=== PATIENT | female | born 2000 | race American Indian/Alaskan Native ===

== ENCOUNTER 2018-08-14 21:00 | Emergency (ER) | payer MEDICAID ==
--- NOTE | 2018-08-14 21:34 | Emergency Department Report ---
Blank Doc - Documentation Documentation: This is a 18-year-old female that presents with UTI concerns. Patient stated she was seen with her OBGYN was diagnosed with UTI but never received medications last week. Stated has some bilateral flank pain. Denies any urinary symptoms. Stated is about 12 weeks . This initial assessment diagnostic orders/clinical plan/treatment(s) is/are subject to change based on patient's health status, clinical progression and re- assessment by fellow clinical providers in the ED. Further treatment and workup at subsequent clinical providers discretion. Patient/guardians urged not to elope from ED s their condition may be serious if not clinically assessed and managed. Initial orders include: 1-Patient sent to [facility] for further evaluation and treatment 2- UA
[2018-08-14 23:44] LABS: Amorphous Crystals,Urine 2+; Bacteria,Urine 1+ /HPF (Negative); Bilirubin,Urine NEG (Negative); Blood,Urine NEG (Negative); Color,Urine Yellow (Yellow); Mucus,Urine FEW /HPF; Protein,Urine <15 mg/dL mg/dL (Negative); Urobilinogen,Urine < 2.0 mg/dL (<2.0)
[2018-08-14 23:53] LABS: HCG Qualitative,Urine Positive (Negative)
--- NOTE | 2018-08-15 01:01 | Emergency Department Report ---
ED Female HPI - General Chief complaint: Urogenital-Female Stated complaint: UTI/PREG Time Seen by Provider: 08/15/18 00:52 Source: patient Mode of arrival: Ambulatory Limitations: No Limitations - History of Present Illness Initial comments: This a 18-year-old -[place] female that presents with vaginal discharge or flank pain. Patient states she was seen by her [facility] and diagnosed with a UTI but never received the prescription. She is 12 weeks . Last menstrual period was 05/14/2018 1 para 0. Patient denies abdominal pain, back pain, frequency, urgency, or dysuria. MD Complaint: vaginal discharge Severity scale (0 -10): 0 Improves with: none Worsens with: none Are you Now?: Yes Last Menstrual Period: 05/14/18 EDC: 02/18/19 Associated Symptoms: vaginal discharge. denies: vaginal bleeding, abdominal pain, nausea/vomiting, fever/chills, headaches, loss of appetite, dysuria, hematuria, rash, seizure, shortness of breath, syncope, weakness - Related Data Sexually active: Yes : 1 Para: 0 A: 0 Previous Rx's Medication Instructions Recorded Last Taken Type valACYclovir [Valtrex] 1,000 mg PO BID #20 tablet 06/09/18 Unknown Rx metroNIDAZOLE [Metronidazole] 500 mg PO BID #14 tablet 08/15/18 Unknown Rx Allergies Allergy/AdvReac Type Severity Reaction Status Date / Time No Known Allergies Allergy Unverified 06/09/18 15:03 ED Review of Systems ROS: Stated complaint: UTI/PREG Other details as noted in HPI Constitutional: denies: chills, fever Respiratory: denies: cough, shortness of breath, wheezing Cardiovascular: denies: chest pain, palpitations Gastrointestinal: denies: abdominal pain, nausea, diarrhea Genitourinary: discharge. denies: urgency, dysuria Musculoskeletal: denies: back pain, joint swelling, arthralgia Neurological: denies: headache, weakness, paresthesias Psychiatric: denies: anxiety, depression ED Past Medical Hx - Past Medical History Previous Medical History?: No - Surgical History Past Surgical History?: No - Social History Smoking Status: Never Smoker Substance Use Type: None - Medications Home Medications: Home Medications Medication Instructions Recorded Confirmed Last Taken Type valACYclovir [Valtrex] 1,000 mg PO BID #20 tablet 06/09/18 Unknown Rx metroNIDAZOLE [Metronidazole] 500 mg PO BID #14 tablet 08/15/18 Unknown Rx ED Physical Exam - General Limitations: No Limitations General appearance: alert, in no apparent distress - Respiratory Respiratory exam: Present: normal lung sounds bilaterally. Absent: respiratory distress - Cardiovascular Cardiovascular Exam: Present: regular rate, normal rhythm. Absent: systolic murmur, diastolic murmur, rubs, gallop - GI/Abdominal GI/Abdominal exam: Present: soft, normal bowel sounds. Absent: distended, tenderness, guarding, rebound, rigid, organomegaly, mass - External exam: Present: normal external exam Speculum exam: Present: vaginal discharge (malodorous grayish discharge). Absent: cervical discharge, vaginal bleeding, foreign body, tissue, laceration Bi-manual exam: Present: normal bi-manual exam - Back Exam Back exam: Absent: CVA tenderness (R), CVA tenderness (L) - Neurological Exam Neurological exam: Present: alert, oriented X3 - Psychiatric Psychiatric exam: Present: normal affect, normal mood - Skin Skin exam: Present: warm, dry, intact, normal color. Absent: rash ED Course Vital Signs 08/14/18 08/15/18 21:34 02:03 Temperature 98.8 F 98.5 F Pulse Rate 92 H 79 Respiratory 18 16 Rate Blood Pressure 150/78 Blood Pressure 130/77 [Right] O2 Sat by Pulse 100 100 Oximetry ED Medical Decision Making - Lab Data Lab Results 08/14/18 Range/Units Unknown Urine Color Yellow (Yellow) Urine Turbidity Cloudy (Clear) Urine pH 7.0 (5.0-7.0) Ur Specific [place] 1.020 (1.003-1.030) Urine Protein <15 mg/dl (Negative) mg/dL Urine Glucose (UA) Neg (Negative) mg/dL Urine Ketones Neg (Negative) mg/dL Urine Blood Neg (Negative) Urine Nitrite Neg (Negative) Urine Bilirubin Neg (Negative) Urine Urobilinogen < 2.0 (<2.0) mg/dL Ur Leukocyte Esterase Neg (Negative) Urine WBC (Auto) 2.0 (0.0-6.0) /HPF Urine RBC (Auto) 5.0 (0.0-6.0) /HPF U Epithel Cells (Auto) 40.0 H (0-13.0) /HPF Urine Bacteria (Auto) 1+ (Negative) /HPF Amorphous Crystals 2+ Urine Mucus Few /HPF Urine HCG, Qual Positive A (Negative) - Medical Decision Making This is a 18-year-old female who presents for treatment of suspected urinary tract infection. Patient was examined by me. Vitals are stable and in no acute distress. Obtained a urinalysis, urine hCG, wet prep, gonorrhea and chlamydia. Pelvic exam. Moderate epithelial seals on urinalysis, positive clue cells on wet prep, negative Trichomonas and yeast. Patient will be treated for acute vaginitis. Start metronidazole 500 mg by mouth twice a day 7 days. Discharged home in stable condition. Discussed prevention options. F/U with [facility]. Critical care attestation.: If time is entered above; I have spent that time in minutes in the direct care of this critically ill patient, excluding procedure time. ED Disposition Clinical Impression: Bacterial vaginitis Vaginal discharge during Qualifiers: Trimester: first trimester Qualified Code(s): O26.891 - Other specified related conditions, first trimester; N89.8 - Other specified noninflammatory disorders of vagina Disposition: DC-01 TO HOME OR SELFCARE Is pt being admited?: No Does the pt Need Aspirin: No Condition: Stable Instructions: Bacterial Vaginosis (ED) Additional Instructions: Complete full course of antibiotics as prescribed. Follow-up with your [facility]. Prescriptions: metroNIDAZOLE [Metronidazole] 500 mg PO BID #14 tablet Referrals: VANESSA JOVELGRUNDY MD [facility] [Primary Care Provider] - 3-5 Days [facility] [Provider Group] - 3-5 Days [facility] [Provider Group] - 3-5 Days [facility] [Provider Group] - 3-5 Days Forms: STI Treatment and Prevention Time of Disposition: 03:04
[2018-08-15 02:05] VITALS: BP 130/77
== END 2018-08-15 03:10 | disposition home or self-care (01) ==
LOC: ED 21:00
DX: O26.891 Other specified pregnancy related conditions, first trimester (principal); O23.591 Infection of other part of genital tract in pregnancy, first trimester; Z3A.01 Less than 8 weeks gestation of pregnancy
CPT/HCPCS: 81001; 81025; 87210; 87591

== ENCOUNTER 2020-10-15 20:39 | Inpatient (IN) | payer MEDICAID ==
[2020-10-15] MEDS ORDERED: MINERAL OIL 30 ML ORAL LIQD PO PRN (23:05)
[2020-10-15] MEDS ORDERED: AMPICILLIN/NS 2 GM/100 ML 2 GM/100 ML BAG IV ONE (23:05)
[2020-10-15] MEDS ORDERED: ePHEDrine SULFATE 50 MG/1 ML INJ IV PRN (23:05)
[2020-10-15] MEDS ORDERED: TERBUTALINE 1 MG/1 ML INJ SUB-Q PRN (23:05)
[2020-10-15] MEDS ORDERED: BUTORPHANOL 2 MG/1 ML INJ IV PRN (23:05)
[2020-10-15] MEDS ORDERED: LIDOCAINE (2%) 20 MG/1 ML VIAL 20 ML MDV INFILTRATI ONE (23:45)
[2020-10-15] MEDS ORDERED: OXYTOCIN DRIP 30 UNITS/500 ML BAG IV SCH ×2 (23:45)
[2020-10-15 23:46] LABS: Hematocrit 35.6 % (30.3-42.9); Mean Corpuscular HGB Conc 34 % (30-34); Mean Corpuscular Volume 87 fl (79-97); Platelet Count 223 K/mm3 (140-440); Red Cell Distribution Width 15.1 % (13.2-15.2)
[2020-10-16] MEDS ORDERED: DINOPROSTONE 10 MG VAG SUPP VG ONE (00:45)
[2020-10-16 01:11] LABS: Alanine Aminotransferase 8 units/L (7-56)
[2020-10-16] MEDS: LACTATED RINGERS 1,000 ML IV SCH ×2 (01:17→04:31)
[2020-10-16] MEDS: AMPICILLIN/NS 1 GM/50 ML 1 GM/50 ML BAG IV SCH (04:31)
[2020-10-16 05:13] LABS: Uric Acid 4.1 mg/dL (3.5-7.6)
--- NOTE | 2020-10-16 06:06 | History and Physical Report ---
History of Present Illness Date of examination: 10/16/20 Date of admission: 10/15/20 23:05 Chief complaint: Presents for a scheduled induction of labor due to CHTN History of present illness: Late entry to care, course complicated by CHTN (Labetolol 100mg PO BID); and +Syphilis (treated and co-managed with [facility]). Patient was non-compliant with referral to [facility]. Past History Past Medical History: hypertension (2018) Past Surgical History: no surgical history MANAGER TRANSPORTATION History: syphilis (2019) Family/Genetic History: diabetes, hypertension, cancer Social history: single, smoking (THC use) - Obstetrical History Expected Date of Delivery: 10/29/20 Actual Gestation: 38 Week(s) 1 Day(s) : 2 Para: 1 Number of Living Children: 1 #1 Gender: Female year: 2[age][birth year] Birthweight: 2.807 kg Method of Delivery: Vaginal Gestational age at delivery: 39 Medications and Allergies Allergies Allergy/AdvReac Type Severity Reaction Status Date / Time No Known Allergies Allergy Unverified 06/09/18 15:03 Home Medications Medication Instructions Recorded Confirmed Last Taken Type valACYclovir [Valtrex] 1,000 mg PO BID #20 tablet 06/09/18 Unknown Rx metroNIDAZOLE [Metronidazole] 500 mg PO BID #14 tablet 08/15/18 Unknown Rx Active Meds: Active Medications Butorphanol Tartrate (Butorphanol 2 Mg/1 Ml Inj) 2 mg IV Q2H PRN PRN Reason: Pain , Severe (7-10) Butorphanol Tartrate (Butorphanol 2 Mg/1 Ml Inj) 1 mg IV Q2H PRN PRN Reason: Pain, Moderate(4-6) LABOR PAIN Ephedrine Sulfate (Ephedrine Sulfate 50 Mg/1 Ml Inj) 10 mg IV Q2M PRN PRN Reason: Hypotension Oxytocin/Sodium Chloride (Pitocin/Ns 30 Unit/500ml) 30 units in 500 mls @ 2 mls/hr IV TITR [facility]; Protocol Lactated Ringer's (Lactated Ringers) 1,000 mls @ 125 mls/hr IV DIRECT [facility] Last Admin: 10/16/20 04:31 Dose: 125 mls/hr Documented by: Oxytocin/Sodium Chloride (Pitocin/Ns 30 Unit/500ml) 30 units in 500 mls @ 40 mls/hr IV TITR [facility]; Protocol Ampicillin Sodium (Ampicillin/Ns 1 Gm/50 Ml) 1 gm in 50 mls @ 100 mls/hr IV Q4H [facility]; Protocol Last Admin: 10/16/20 04:31 Dose: 100 mls/hr Documented by: Labetalol HCl (Labetalol 100 Mg Tab) 100 mg PO BID [facility] Mineral Oil (Mineral Oil 30 Ml Oral Liqd) 30 ml PO QHS PRN PRN Reason: Constipation Terbutaline Sulfate (Terbutaline 1 Mg/1 Ml Inj) 0.25 mg SUB-Q ONCE PRN PRN Reason: Hyperstimulation/Hypertonicity Review of Systems All systems: negative - Vital Signs Vital signs: Vital Signs Pulse BP 78 118/64 10/15/20 21:37 10/15/20 21:37 Temp Pulse Resp BP Pulse Ox 98.0 F 93 H 20 117/59 98 10/16/20 05:14 10/16/20 05:57 10/16/20 05:14 10/16/20 05:20 10/16/20 05:57 - Physical Exam Breasts: Positive: normal Cardiovascular: Regular rate Lungs: Positive: Clear to auscultation, Normal air movement Abdomen: Positive: normal appearance, soft, normal bowel sounds Genitourinary (Female): Positive: normal external genitalia, normal perenium Uterus: Positive: enlarged Anus/Rectum: Positive: normal perianal skin Extremities: Positive: normal - Obstetrical FHR: category 1 Uterine Contraction Monitor Mode: External Cervical Dilatation: 0 Uterine Contraction Pattern: Irregular Uterine Tone Measurement Phase: Resting Uterine Contraction Intensity: Mild Results Result Diagrams: 10/15/20 23:24 10/16/20 00:44 Abnormal lab results 10/16/20 Range/Units 00:44 Creatinine 0.4 L (0.6-1.2) mg/dL All other labs normal. Assessment and Plan A: IUP @ 38 1/7 Weeks Category I Tracing CHTN +RPR GBS Unknown P: Admit to L&D per Routine Orders PIH Labs Continue Labetolol 100mg PO BID Cervidil Induction GBS Prophylaxis
[2020-10-16] MEDS: BUTORPHANOL 2 MG/1 ML INJ IV PRN ×3 (07:34→23:05)
--- NOTE | 2020-10-16 11:34 | Progress Note ---
Assessment and Plan A: IUP@ 39 wks + GBS; CHTN + Syphilis(treated) P: Continue monitoring with Cervidil Pain med/Epidural prn GBS prophylaxis Expect progress Subjective - Subjective Date of service: 10/16/20 Principal diagnosis: IUP@39 wks Patient reports: movement normal Objective - Vital Signs Vital Signs: Vital Signs - 12hr 10/16/20 10/16/20 10/16/20 01:20 02:20 03:21 Temperature Pulse Rate 82 82 74 Respiratory Rate Blood Pressure 123/58 105/54 116/57 O2 Sat by Pulse Oximetry 10/16/20 10/16/20 10/16/20 04:20 05:14 05:20 Temperature 98.0 F Pulse Rate 90 95 H Respiratory 20 Rate Blood Pressure 102/51 117/59 O2 Sat by Pulse Oximetry 10/16/20 10/16/20 10/16/20 05:37 05:42 05:47 Temperature Pulse Rate 97 H 85 86 Respiratory Rate Blood Pressure O2 Sat by Pulse 99 98 98 Oximetry 10/16/20 10/16/20 10/16/20 05:52 05:57 06:02 Temperature Pulse Rate 87 93 H 78 Respiratory Rate Blood Pressure O2 Sat by Pulse 97 98 99 Oximetry 10/16/20 10/16/20 10/16/20 06:07 06:12 06:17 Temperature Pulse Rate 89 79 86 Respiratory Rate Blood Pressure O2 Sat by Pulse 98 97 98 Oximetry 10/16/20 10/16/20 10/16/20 06:20 06:22 06:35 Temperature Pulse Rate 82 82 86 Respiratory Rate Blood Pressure 125/75 O2 Sat by Pulse 100 99 Oximetry 10/16/20 10/16/20 10/16/20 06:40 06:45 06:50 Temperature Pulse Rate 87 80 86 Respiratory Rate Blood Pressure O2 Sat by Pulse 99 98 98 Oximetry 10/16/20 10/16/20 10/16/20 06:55 07:00 07:05 Temperature Pulse Rate 90 82 90 Respiratory Rate Blood Pressure O2 Sat by Pulse 99 98 98 Oximetry 10/16/20 10/16/20 10/16/20 07:10 07:15 07:19 Temperature Pulse Rate 90 96 H 93 H Respiratory Rate Blood Pressure 118/66 O2 Sat by Pulse 98 99 Oximetry 10/16/20 10/16/20 10/16/20 07:20 08:20 09:20 Temperature Pulse Rate 89 82 76 Respiratory Rate Blood Pressure 117/57 112/61 O2 Sat by Pulse 98 Oximetry 10/16/20 10/16/20 10/16/20 10:05 10:07 10:09 Temperature 98.0 F Pulse Rate 99 H 84 Respiratory 18 Rate Blood Pressure 125/71 125/71 O2 Sat by Pulse Oximetry 10/16/20 10/16/20 10:20 11:20 Temperature Pulse Rate 89 82 Respiratory Rate Blood Pressure 115/57 119/63 O2 Sat by Pulse Oximetry - Exam Breasts: normal Abdomen: Present: normal appearance, soft, normal bowel sounds, other (gravid) Vulva: both: normal Uterus: Present: normal FHR: auscultation normal, category 1 Uterine Contraction Monitor Mode: External Uterine Contraction Pattern: Irregular Uterine Tone Measurement Phase: Resting Uterine Contraction Intensity: Mild Extremities: normal - Labs Labs: Abnormal Labs 10/16/20 00:44 Creatinine 0.4 L Laboratory Results - last 24 hr 10/15/20 10/15/20 10/15/20 23:00 23:24 23:24 WBC 7.5 RBC 4.10 Hgb 12.0 Hct 35.6 MCV 87 MCH 29 MCHC 34 RDW 15.1 Plt Count 223 Creatinine Estimated GFR Uric Acid AST ALT Lactate Dehydrogenase Syphilis IgG Antibody Nonreactive Blood Type O POSITIVE Antibody Screen Negative 10/16/20 00:44 WBC RBC Hgb Hct MCV MCH MCHC RDW Plt Count Creatinine 0.4 L Estimated GFR > 60 Uric Acid 4.1 AST 13 ALT 8 Lactate Dehydrogenase 149 Syphilis IgG Antibody Blood Type Antibody Screen
[2020-10-16] MEDS ORDERED: DINOPROSTONE 10 MG VAG SUPP VG NR (14:59)
--- NOTE | 2020-10-16 22:20 | Event Note ---
Date: 10/16/20 Called to to assess pt r/t a CAT II FH tracing. Pt had a 4-5 min FH decel down to 60s. Mod robert with irreg uc were noted. Cervidil was removed; IV bolus was started. Pt was repositioned and 02 via FM ws applied. SVE 2.5/80/-2 vtx. FHR back up to 148 with min to mod robert. Will cont monitoring and start Pitocin @ low dose if FHT remains at a CAT I. Dr Martin was notified.
[2020-10-17] MEDS: LACTATED RINGERS 1,000 ML IV SCH ×4 (02:42→14:08)
[2020-10-17] MEDS: AMPICILLIN/NS 1 GM/50 ML 1 GM/50 ML BAG IV SCH ×6 (07:55→15:46)
--- NOTE | 2020-10-17 10:13 | Progress Note ---
Subjective - Subjective Date of service: 10/17/20 Principal diagnosis: IUP@39 wks Interval history: FHT Category1 AROM clear fluid Cervix 3/50%/-3 continue oxytocin per protocol recommend epidural Adrian Milton MD Patient reports: movement normal Objective - Vital Signs Vital Signs: Vital Signs - 12hr 10/16/20 10/16/20 10/16/20 22:15 22:20 22:25 Temperature Pulse Rate 90 84 87 Respiratory Rate Blood Pressure 123/71 O2 Sat by Pulse 99 98 97 Oximetry 10/16/20 10/16/20 10/16/20 22:30 22:49 22:54 Temperature Pulse Rate 92 H 82 81 Respiratory Rate Blood Pressure 113/59 O2 Sat by Pulse 98 99 98 Oximetry 10/16/20 10/16/20 10/16/20 22:59 23:00 23:04 Temperature 98 F Pulse Rate 85 87 Respiratory 18 Rate Blood Pressure O2 Sat by Pulse 99 96 Oximetry 10/16/20 10/16/20 10/16/20 23:09 23:14 23:19 Temperature Pulse Rate 87 75 74 Respiratory Rate Blood Pressure O2 Sat by Pulse 97 96 96 Oximetry 10/16/20 10/16/20 10/16/20 23:21 23:24 23:29 Temperature Pulse Rate 75 76 79 Respiratory Rate Blood Pressure O2 Sat by Pulse 94 98 96 Oximetry 10/16/20 10/16/20 10/16/20 23:34 23:39 23:44 Temperature Pulse Rate 75 85 76 Respiratory Rate Blood Pressure O2 Sat by Pulse 97 97 97 Oximetry 10/16/20 10/16/20 10/17/20 23:51 23:56 00:01 Temperature Pulse Rate 87 74 76 Respiratory Rate Blood Pressure O2 Sat by Pulse 98 98 98 Oximetry 10/17/20 10/17/20 10/17/20 00:06 00:11 00:16 Temperature Pulse Rate 74 75 74 Respiratory Rate Blood Pressure O2 Sat by Pulse 96 97 97 Oximetry 10/17/20 10/17/20 10/17/20 00:21 00:26 00:31 Temperature Pulse Rate 78 74 77 Respiratory Rate Blood Pressure O2 Sat by Pulse 97 98 97 Oximetry 10/17/20 10/17/20 10/17/20 00:36 00:41 00:46 Temperature Pulse Rate 77 77 79 Respiratory Rate Blood Pressure O2 Sat by Pulse 97 97 97 Oximetry 10/17/20 10/17/20 10/17/20 00:51 00:56 01:05 Temperature Pulse Rate 78 78 81 Respiratory Rate Blood Pressure O2 Sat by Pulse 96 97 100 Oximetry 10/17/20 10/17/20 10/17/20 01:07 01:10 01:15 Temperature Pulse Rate 79 75 83 Respiratory Rate Blood Pressure 116/55 O2 Sat by Pulse 99 100 Oximetry 10/17/20 10/17/20 10/17/20 01:20 01:25 01:30 Temperature Pulse Rate 76 76 89 Respiratory Rate Blood Pressure O2 Sat by Pulse 100 99 99 Oximetry 10/17/20 10/17/20 10/17/20 01:33 01:35 01:40 Temperature Pulse Rate 90 73 74 Respiratory Rate Blood Pressure O2 Sat by Pulse 92 99 99 Oximetry 10/17/20 10/17/20 10/17/20 01:45 01:50 01:55 Temperature Pulse Rate 75 76 75 Respiratory Rate Blood Pressure O2 Sat by Pulse 98 99 98 Oximetry 10/17/20 10/17/20 10/17/20 02:00 02:05 02:07 Temperature Pulse Rate 89 76 72 Respiratory Rate Blood Pressure 112/57 O2 Sat by Pulse 98 97 Oximetry 10/17/20 10/17/20 10/17/20 02:10 02:15 02:20 Temperature Pulse Rate 73 88 80 Respiratory Rate Blood Pressure O2 Sat by Pulse 98 99 97 Oximetry 10/17/20 10/17/20 10/17/20 02:29 02:34 02:39 Temperature Pulse Rate 100 H 84 77 Respiratory Rate Blood Pressure O2 Sat by Pulse 100 98 97 Oximetry 10/17/20 10/17/20 10/17/20 02:44 02:49 02:54 Temperature Pulse Rate 75 100 H 78 Respiratory Rate Blood Pressure O2 Sat by Pulse 98 100 98 Oximetry 10/17/20 10/17/20 10/17/20 02:59 03:04 03:07 Temperature Pulse Rate 76 76 74 Respiratory Rate Blood Pressure 110/63 O2 Sat by Pulse 98 99 Oximetry 10/17/20 10/17/20 10/17/20 03:09 03:14 03:19 Temperature Pulse Rate 88 75 76 Respiratory Rate Blood Pressure O2 Sat by Pulse 98 98 98 Oximetry 10/17/20 10/17/20 10/17/20 03:24 03:29 03:34 Temperature Pulse Rate 87 78 84 Respiratory Rate Blood Pressure O2 Sat by Pulse 98 97 97 Oximetry 10/17/20 10/17/20 10/17/20 03:39 03:44 03:47 Temperature 98.2 F Pulse Rate 74 74 Respiratory 16 Rate Blood Pressure O2 Sat by Pulse 96 98 Oximetry 10/17/20 10/17/20 10/17/20 03:49 03:54 03:59 Temperature Pulse Rate 81 74 78 Respiratory Rate Blood Pressure O2 Sat by Pulse 99 96 95 Oximetry 10/17/20 10/17/20 10/17/20 04:04 04:08 04:09 Temperature Pulse Rate 72 83 92 H Respiratory Rate Blood Pressure 123/76 O2 Sat by Pulse 98 95 Oximetry 10/17/20 10/17/20 10/17/20 04:10 04:18 04:19 Temperature Pulse Rate 78 73 Respiratory Rate Blood Pressure O2 Sat by Pulse 84 70 L 74 L Oximetry 10/17/20 10/17/20 10/17/20 04:23 04:28 04:33 Temperature Pulse Rate 63 80 70 Respiratory Rate Blood Pressure O2 Sat by Pulse 98 84 95 Oximetry 10/17/20 10/17/20 10/17/20 04:38 04:39 04:43 Temperature Pulse Rate 72 76 75 Respiratory Rate Blood Pressure O2 Sat by Pulse 100 91 100 Oximetry 10/17/20 10/17/20 10/17/20 04:48 04:53 04:58 Temperature Pulse Rate 69 72 72 Respiratory Rate Blood Pressure O2 Sat by Pulse 99 99 100 Oximetry 10/17/20 10/17/20 10/17/20 05:03 05:07 05:08 Temperature Pulse Rate 76 76 69 Respiratory Rate Blood Pressure 125/81 O2 Sat by Pulse 99 92 99 Oximetry 10/17/20 10/17/20 10/17/20 05:13 05:18 05:23 Temperature Pulse Rate 69 71 76 Respiratory Rate Blood Pressure O2 Sat by Pulse 99 97 95 Oximetry 10/17/20 10/17/20 10/17/20 05:26 05:28 05:33 Temperature Pulse Rate 67 69 67 Respiratory Rate Blood Pressure O2 Sat by Pulse 94 98 99 Oximetry 10/17/20 10/17/20 10/17/20 05:35 05:38 05:43 Temperature Pulse Rate 69 77 82 Respiratory Rate Blood Pressure O2 Sat by Pulse 94 87 99 Oximetry 10/17/20 10/17/20 10/17/20 05:48 05:53 06:03 Temperature Pulse Rate 69 73 83 Respiratory Rate Blood Pressure O2 Sat by Pulse 96 99 96 Oximetry 10/17/20 10/17/20 10/17/20 06:08 06:13 06:19 Temperature Pulse Rate 75 70 69 Respiratory Rate Blood Pressure O2 Sat by Pulse 99 99 98 Oximetry 10/17/20 10/17/20 10/17/20 06:23 06:28 06:33 Temperature Pulse Rate 68 75 73 Respiratory Rate Blood Pressure O2 Sat by Pulse 98 98 97 Oximetry 10/17/20 10/17/20 10/17/20 06:38 06:43 06:48 Temperature Pulse Rate 75 74 75 Respiratory Rate Blood Pressure O2 Sat by Pulse 97 97 97 Oximetry 10/17/20 10/17/20 10/17/20 06:53 06:59 07:03 Temperature Pulse Rate 74 79 73 Respiratory Rate Blood Pressure O2 Sat by Pulse 97 96 97 Oximetry 10/17/20 10/17/20 10/17/20 07:09 07:13 07:14 Temperature Pulse Rate 77 87 88 Respiratory Rate Blood Pressure 115/63 O2 Sat by Pulse 97 96 91 Oximetry 10/17/20 10/17/20 10/17/20 07:19 07:24 07:31 Temperature Pulse Rate 79 89 33 L Respiratory Rate Blood Pressure O2 Sat by Pulse 96 98 79 L Oximetry 10/17/20 10/17/20 10/17/20 07:32 07:35 07:36 Temperature 97.6 F Pulse Rate 34 L 78 80 Respiratory 16 Rate Blood Pressure 120/66 O2 Sat by Pulse 84 98 97 Oximetry 10/17/20 10/17/20 10/17/20 07:38 07:42 07:46 Temperature Pulse Rate 86 72 73 Respiratory Rate Blood Pressure O2 Sat by Pulse 90 98 99 Oximetry 10/17/20 10/17/20 10/17/20 07:51 07:57 08:00 Temperature Pulse Rate 69 72 76 Respiratory Rate Blood Pressure O2 Sat by Pulse 98 97 93 Oximetry 10/17/20 10/17/20 10/17/20 08:02 08:07 08:08 Temperature Pulse Rate 79 85 71 Respiratory Rate Blood Pressure 131/76 O2 Sat by Pulse 98 97 Oximetry 10/17/20 10/17/20 10/17/20 08:12 08:17 08:22 Temperature Pulse Rate 77 68 69 Respiratory Rate Blood Pressure O2 Sat by Pulse 99 97 100 Oximetry 10/17/20 10/17/20 10/17/20 08:27 08:32 08:37 Temperature Pulse Rate 72 69 67 Respiratory Rate Blood Pressure O2 Sat by Pulse 100 100 100 Oximetry 10/17/20 10/17/20 08:38 09:09 Temperature Pulse Rate 82 82 Respiratory Rate Blood Pressure 116/58 O2 Sat by Pulse 94 Oximetry - Labs Labs: Abnormal Labs 10/16/20 00:44 Creatinine 0.4 L Laboratory Results - last 24 hr 10/16/20 Unknown Coronavirus (PCR) Negative
--- NOTE | 2020-10-17 12:27 | Event Note ---
Date: 10/17/20 Assumed care of patient at 10:30 AM. SVE 4.5/70/-3. Patient requests epidural.
--- NOTE | 2020-10-17 13:09 | Event Note ---
Date: 10/17/20 Minimal FHR variability, normal baseline FHR, and early FHR decelerations noted. Pitocin turned off at 12:57 and oxygen applied per face mask. Patient is resting in left lateral position. Nurse states patient received pain medication about an hour ago. FHR acceleration noted with scalp stimulation.
--- NOTE | 2020-10-17 14:00 | Anesthesia Consultation ---
Anesthesia Consult and Med Hx Date of service: 10/17/20 - Airway Anesthetic Teeth Evaluation: Good ROM Head & Neck: Adequate Mental/Hyoid Distance: Adequate Mallampati Class: Class II Intubation Access Assessment: Probably Good - Pulmonary Exam CTA: Yes - Cardiac Exam Cardiac Exam: RRR - Pre-Operative Health Status ASA Pre-Surgery Classification: ASA2 Proposed Anesthetic Plan: Epidural - Pulmonary Hx Smoking: No Hx Asthma: No COPD: No Hx Pneumonia: No Hx Sleep Apnea: No - Cardiovascular System Hx Hypertension: Yes Hx Heart Attack/AMI: No Hx Angina: No - Central Nervous System Hx Seizures: Yes (DURING CHILDHOOD. PT. DOESNT REMEMBER THE CAUSE.) Hx Psychiatric Problems: No - Gastrointestinal Hx Gastroesophageal Reflux Disease: No - Endocrine Hx Renal Disease: No Hx End Stage Renal Disease: No Hx Insulin Dependent Diabetes: No Hx Non-Insulin Dependent Diabetes: No Hx Hypothyroidism: No Hx Hyperthyroidism: No - Hematic Hx Anemia: No Hx Sickle Cell Disease: No - Other Systems Hx Alcohol Use: Yes
[2020-10-17] MEDS ORDERED: diphenhydrAMINE 50 MG/ML VIAL IV PRN (14:02)
[2020-10-17] MEDS ORDERED: NalbUPHINE 10 MG/1 ML INJ IV PRN (14:02)
[2020-10-17] MEDS ORDERED: NALOXONE 2 MG/2 ML INJ IV PRN (14:02)
[2020-10-17] MEDS ORDERED: ONDANSETRON 4 MG/2 ML INJ IV PRN (14:02)
--- NOTE | 2020-10-17 14:33 | Progress Note ---
Labor Epidural - Labor Epidural Start Time: 14:07 Stop Time: 14:30 Performed by:: FLO ZULETA Procedure: Patient is requesting epidural for labor and pain. H&P, labs were reviewed. Patient IDed, H&P reviewed, all questions and concerns were answered, and consent was signed. Timeout was performed at bedside. Patient in sitting position. Sterile prep and drape was performed. 3ml of 1% lidocaine skin wheal at L[3]- L [4]. 18-gauge Tuohy epidural needle was advanced to loss of resistance with air technique 6cm. Negative CSF negative blood. Epidural catheter advanced to [12] centimeters. [negative] Aspiration [negative] test dose. Sterile dressing applied. Patient tolerated procedure.
[2020-10-17] MEDS ORDERED: fentaNYL-BUPIV 2 MCG/ML-0.125% 200 MCG/100 ML BAG EPIDURAL SCH (15:00)
[2020-10-17] MEDS ORDERED: LACTATED RINGERS 250 ML IV SOLN IV ONE (15:02)
--- NOTE | 2020-10-17 15:14 | Event Note ---
Date: 10/17/20 SVE /-2. Patient comfortable after receiving epidural.
--- NOTE | 2020-10-17 16:08 | Event Note ---
Date: 10/17/20 IUPC inserted to better assess contractions. SVE 5.5/-2.
[2020-10-17] MEDS ORDERED: SODIUM CHLORIDE 0.9% 1000 ML 1,000 ML VG SCH (18:00)
[2020-10-17] MEDS ORDERED: TERBUTALINE 1 MG/1 ML INJ IVP ONE (18:52)
[2020-10-17] MEDS ORDERED: LANOLIN/ZINC/DIMETHICONE (LANSINOH) 7 GM TP PRN (19:16)
[2020-10-17] MEDS ORDERED: WITCH HAZEL/ GLYCERIN PAD TP PRN (19:16)
--- NOTE | 2020-10-17 19:36 | Procedure Note ---
OB Delivery Note - Delivery Date of Delivery: 10/17/20 Surgeon: LUANNE MORELAND Estimated blood loss: other (250 cc) - Vaginal Delivery presentation: vertex Delivery position: OA Intrapartum events: none Delivery induction: oxytocin Delivery augmentation: rupture of membranes Delivery monitor: external FHT, external uterine, internal FHT, internal uterine Route of delivery: Delivery placenta: spontaneous Delivery cord: 3 umbilical vessels Episiotomy: none Delivery laceration: none Anesthesia: epidural Delivery comments: Spontaneous vaginal delivery at 18:48 of liveborn female infant weighing 5 lb. 11 oz. with apgars of 8/9. was atraumatic. Baby was placed skin to skin with mom immediately after delivery. Spontaneous cry and respirations. Baby was suctioned with bulb syringe and dried with warm blankets. 3 vessel cord double clamped and cut. Spontaneous delivery of intact placenta and membranes by reyes mechanism. EBL 250 cc. Pitocin to IV fluids after delivery of placenta. Fundus firm and midline. No lacerations noted. Vaginal sweep negative. Sponge count correct. Mother and baby stable.
[2020-10-18] MEDS: IBUPROFEN 600 MG TAB PO SCH ×2 (04:05→19:03)
--- NOTE | 2020-10-18 05:44 | Progress Note ---
Assessment and Plan A: day 1 S/P . P: Continue routine care. Hemoglobin and hematocrit today. Subjective - Subjective Date of service: 10/18/20 Principal diagnosis: day 1 S/P Patient reports: appetite normal, voiding normally, pain well controlled, flatus, ambulating normally, no dizzy ambulation, no nauseated : doing well Objective - Vital Signs Latest vital signs: Vital Signs Temp Pulse Resp BP BP Pulse Ox 10/18/20 04:00 98.4 F 69 18 111/68 10/18/20 00:18 98.6 F 77 18 115/62 100 10/17/20 22:40 97.9 F 80 17 121/67 100 10/17/20 21:53 80 99 10/17/20 21:48 78 99 10/17/20 21:43 87 98 10/17/20 21:38 104 H 99 10/17/20 21:33 86 96 10/17/20 21:28 85 97 10/17/20 21:23 78 98 10/17/20 21:18 89 97 10/17/20 21:17 81 93 10/17/20 21:13 96 H 99 10/17/20 21:10 90 92 10/17/20 21:08 88 99 10/17/20 21:03 87 99 10/17/20 20:58 83 100 10/17/20 20:53 88 98 10/17/20 20:51 95 H 91 10/17/20 20:48 91 H 95 10/17/20 20:45 92 H 92 10/17/20 20:43 83 98 10/17/20 20:38 80 100 10/17/20 20:33 82 98 10/17/20 20:28 79 100 10/17/20 20:23 78 98 10/17/20 20:18 81 99 10/17/20 20:13 83 83 L 10/17/20 20:08 78 98 10/17/20 20:05 77 93 10/17/20 20:03 76 100 10/17/20 20:00 74 118/85 10/17/20 19:58 74 99 10/17/20 19:56 71 85 10/17/20 19:53 76 100 10/17/20 19:48 80 100 10/17/20 19:45 77 127/81 10/17/20 19:43 87 100 10/17/20 19:38 74 99 10/17/20 19:34 77 91 10/17/20 19:33 78 99 10/17/20 19:31 73 117/75 10/17/20 19:28 78 84 10/17/20 19:23 76 93 10/17/20 19:18 86 100 10/17/20 19:15 76 121/71 10/17/20 19:13 80 99 10/17/20 19:08 77 100 10/17/20 19:04 75 114/68 10/17/20 19:03 76 100 10/17/20 19:01 83 112/64 10/17/20 18:58 97 H 100 10/17/20 18:53 115 H 100 10/17/20 18:48 92 H 100 10/17/20 18:47 100 H 94 10/17/20 18:46 73 120/66 10/17/20 18:43 72 100 10/17/20 18:38 73 100 10/17/20 18:33 79 100 10/17/20 18:32 69 130/78 10/17/20 18:28 69 100 10/17/20 18:23 77 100 10/17/20 18:18 70 100 10/17/20 18:15 65 114/68 10/17/20 18:13 66 100 10/17/20 18:08 71 100 10/17/20 18:03 79 100 10/17/20 18:00 72 110/64 10/17/20 17:58 76 100 10/17/20 17:53 83 100 10/17/20 17:48 90 100 10/17/20 17:46 87 107/59 10/17/20 17:43 75 98 10/17/20 17:38 68 100 10/17/20 17:33 95 H 95 10/17/20 17:32 75 82 L 10/17/20 17:31 70 117/68 10/17/20 17:28 79 100 10/17/20 17:23 68 100 10/17/20 17:18 69 100 10/17/20 17:17 64 118/69 10/17/20 17:13 74 100 10/17/20 17:08 67 100 10/17/20 17:03 74 100 10/17/20 17:02 68 86 10/17/20 17:00 63 115/67 10/17/20 16:58 67 100 10/17/20 16:53 68 89 10/17/20 16:51 75 84 10/17/20 16:48 70 100 10/17/20 16:45 71 113/65 10/17/20 16:43 69 100 10/17/20 16:38 66 100 10/17/20 16:33 65 100 10/17/20 16:30 62 107/62 10/17/20 16:28 70 100 10/17/20 16:23 61 100 10/17/20 16:18 60 100 10/17/20 16:17 61 108/60 10/17/20 16:13 75 100 10/17/20 16:08 59 L 100 10/17/20 16:03 74 99 10/17/20 16:01 76 103/57 10/17/20 15:58 69 100 10/17/20 15:53 67 100 10/17/20 15:48 69 106/55 100 10/17/20 15:45 77 99/56 10/17/20 15:43 85 98 10/17/20 15:42 75 111/63 10/17/20 15:39 63 112/56 10/17/20 15:38 70 98 10/17/20 15:36 71 104/59 10/17/20 15:33 68 103/56 98 10/17/20 15:30 68 113/70 10/17/20 15:28 68 97 10/17/20 15:27 69 115/70 10/17/20 15:24 65 112/65 10/17/20 15:23 74 95 10/17/20 15:21 71 101/55 10/17/20 15:18 64 106/63 96 10/17/20 15:15 64 112/65 10/17/20 15:13 66 96 10/17/20 15:12 68 118/67 10/17/20 15:09 70 110/61 10/17/20 15:08 67 96 10/17/20 15:06 65 113/66 10/17/20 15:03 60 115/66 96 10/17/20 15:00 97.6 F 69 106/56 10/17/20 14:58 70 97 10/17/20 14:57 68 108/56 10/17/20 14:54 68 113/68 10/17/20 14:53 72 96 10/17/20 14:51 64 118/71 10/17/20 14:48 66 121/72 97 10/17/20 14:45 68 115/66 10/17/20 14:43 65 97 10/17/20 14:42 61 124/73 10/17/20 14:39 59 L 127/74 10/17/20 14:38 61 98 10/17/20 14:36 66 123/73 10/17/20 14:33 60 119/68 99 10/17/20 14:30 74 115/67 10/17/20 14:28 79 99 10/17/20 14:27 84 106/65 10/17/20 14:24 92 H 108/65 10/17/20 14:23 92 H 99 10/17/20 14:21 80 130/78 10/17/20 14:18 85 122/75 99 10/17/20 14:13 76 99 10/17/20 14:08 75 99 10/17/20 14:07 73 127/73 10/17/20 14:03 74 100 10/17/20 14:00 87 10/17/20 13:38 71 98 10/17/20 13:36 78 L 10/17/20 13:33 70 99 10/17/20 13:30 61 89 10/17/20 13:28 68 100 10/17/20 13:23 62 99 10/17/20 13:19 77 93 10/17/20 13:18 67 100 10/17/20 13:13 60 100 10/17/20 13:08 68 100 10/17/20 13:07 64 125/72 10/17/20 13:03 66 100 10/17/20 12:58 67 99 10/17/20 12:53 70 99 10/17/20 12:48 67 97 10/17/20 12:43 67 99 10/17/20 12:38 66 99 10/17/20 12:33 89 99 10/17/20 12:28 69 98 10/17/20 12:23 91 H 99 10/17/20 12:17 77 100 10/17/20 12:13 75 99 10/17/20 12:08 71 98 10/17/20 12:07 69 118/67 10/17/20 12:03 77 99 10/17/20 11:58 82 99 10/17/20 11:53 75 100 10/17/20 11:48 78 98 10/17/20 11:43 76 99 10/17/20 11:38 77 99 10/17/20 11:33 75 98 10/17/20 11:28 78 100 10/17/20 11:23 78 100 10/17/20 11:18 76 99 10/17/20 11:13 78 98 10/17/20 11:08 73 120/69 98 10/17/20 11:03 71 100 10/17/20 10:58 75 99 10/17/20 10:53 75 100 10/17/20 10:52 20 10/17/20 10:51 81 127/70 10/17/20 10:50 80 127/70 10/17/20 10:48 75 100 10/17/20 10:43 79 100 10/17/20 10:38 77 100 10/17/20 10:33 82 99 10/17/20 10:28 77 100 10/17/20 10:23 79 100 10/17/20 10:18 81 100 10/17/20 10:13 86 100 10/17/20 10:08 88 10/17/20 10:07 88 10/17/20 09:09 82 116/58 10/17/20 08:38 82 94 10/17/20 08:37 67 100 10/17/20 08:32 69 100 10/17/20 08:27 72 100 10/17/20 08:22 69 100 10/17/20 08:17 68 97 10/17/20 08:12 77 99 10/17/20 08:08 71 131/76 10/17/20 08:07 85 97 10/17/20 08:02 79 98 10/17/20 08:00 76 93 10/17/20 07:57 72 97 10/17/20 07:51 69 98 10/17/20 07:46 73 99 10/17/20 07:42 72 98 10/17/20 07:38 86 90 10/17/20 07:36 80 97 10/17/20 07:35 97.6 F 78 16 120/66 98 10/17/20 07:32 34 L 84 10/17/20 07:31 33 L 79 L 10/17/20 07:24 89 98 10/17/20 07:19 79 96 10/17/20 07:14 88 91 10/17/20 07:13 87 96 10/17/20 07:09 77 115/63 97 10/17/20 07:03 73 97 10/17/20 06:59 79 96 10/17/20 06:53 74 97 10/17/20 06:48 75 97 10/17/20 06:43 74 97 10/17/20 06:38 75 97 10/17/20 06:33 73 97 10/17/20 06:28 75 98 10/17/20 06:23 68 98 10/17/20 06:19 69 98 10/17/20 06:13 70 99 10/17/20 06:08 75 99 10/17/20 06:03 83 96 10/17/20 05:53 73 99 10/17/20 05:48 69 96 10/17/20 05:43 82 99 Intake and Output 10/17/20 10/17/20 10/18/20 15:59 23:59 07:59 Intake Total 2078.883 600 Output Total 2400 600 Balance 2078.883 -2400 0 Intake: IV 2078.883 AMPICILLIN/NS 1 GM/50 ML 100 1 gm In 50 ml @ 100 mls/ hr IV Q4H [facility] Rx#: [id number] Lactated Ringers 1,000 ml 1882.35 @ 125 mls/hr IV DIRECT MIHAI Rx#:[id number] PITOCin/NS 30 UNIT/500ML 96.533 30 units In 500 ml @ 2 mls/hr IV TITR [facility]I Rx#: [id number] Intake, Free Water 600 Output: Urine 2400 600 Indwelling Catheter 1800 Void 600 600 Other: Total, Output Amount 600 600 # Voids Void 1 1 1 # Bowel Movements 1 - Exam Cardiovascular: Present: Regular rate Lungs: Present: Clear to auscultation Abdomen: Present: normal appearance, soft. Absent: distention, tenderness, guarding, rigidity Uterus: Present: normal, firm, fundal height below umbilicus. Absent: bogginess, tenderness Extremities: Present: normal
[2020-10-18 06:16] LABS: Hematocrit 31.4 % (30.3-42.9); Hemoglobin 10.6 gm/dl (10.1-14.3)
[2020-10-18] MEDS: HYDROcodone/ACETAMINOPHEN 5-325 MG TAB PO PRN ×2 (09:16→22:57)
[2020-10-18] MEDS: DOCUSATE SODIUM 100 MG CAP PO SCH ×2 (09:17→22:57)
--- NOTE | 2020-10-18 13:59 | Post Anesthesia Evaluation ---
- Post Anesthesia Evaluation Patient Participated: Yes Airway Patent: Yes Stable Respiratory Function: Yes Nausea/Vomiting: No Temp > 96.8F: Yes Pain Manageable: Yes Adequeate Hydration: Yes Anesthesia Complications: No Block Receding Appropriately: Yes Patient on Ventilator: No
[2020-10-19] MEDS: IBUPROFEN 600 MG TAB PO SCH ×2 (05:49→12:35)
[2020-10-19] MEDS: DOCUSATE SODIUM 100 MG CAP PO SCH (10:32)
--- NOTE | 2020-10-19 16:38 | Progress Note ---
Assessment and Plan A: day 2 S/P . Anemia. P: Discharge patient home today. Discussed with patient discharge instructions and warning signs. Advised patient to continue to take her vitamins and iron supplements at home. Advised patient to avoid intercourse, lifting, housework. Advised patient to follow up at [facility] office in 3 days for BP check. Patient voiced understanding of all instructions. Subjective - Subjective Date of service: 10/19/20 Principal diagnosis: day 2 S/P Interval history: Patient desires discharge home today. Patient is doing well; no complaints. Patient reports: appetite normal, voiding normally, pain well controlled, flatus, ambulating normally, no dizzy ambulation, no nauseated [place]: doing well Objective - Vital Signs Latest vital signs: Vital Signs Temp Resp BP 10/18/20 23:09 97.6 F 20 127/73 Intake and Output 10/19/20 10/19/20 10/19/20 07:59 15:59 23:59 Intake Total 120 Balance 120 Intake: Oral 120 Other: Total, Intake Amount 120 # Voids Void 1 - Exam Cardiovascular: Present: Regular rate Lungs: Present: Clear to auscultation Abdomen: Present: normal appearance, soft, normal bowel sounds. Absent: distention, tenderness, guarding, rigidity Uterus: Present: normal, firm, fundal height below umbilicus. Absent: bogginess, tenderness Extremities: Present: normal. Absent: tenderness, edema
--- NOTE | 2020-10-19 16:40 | Discharge Summary ---
Providers - Providers Date of Admission: 10/15/20 23:05 Date of discharge: 10/19/20 Attending physician: ESTEFANIA WHITLEY MD Primary care physician: ESTEFANIA WHITLEY MD Hospitalization Reason for admission: induction of labor Delivery: Episiotomy: none Laceration: none Other procedures: none complications: none Discharge diagnosis: IUP at term delivered [place] baby: female Pertinent studies: Labs Hospital course: Normal hospital course. Condition at discharge: Good Disposition: DC-01 TO HOME OR SELFCARE - Discharge Diagnoses (1) Term delivered Status: Acute (2) Anemia Status: Acute Plan - Provider Discharge Summary Activity: routine, no sex for 6 weeks, no heavy lifting 4 weeks, no strenuous exercise Diet: routine Instructions: routine Additional instructions: Continue taking your vitamin and iron supplement at home. Call your doctor immediately for: * Fever > 100.5 * Heavy vaginal bleeding ( >1 pad per hour) * Severe persistent headache * Shortness of breath * Reddened, hot, painful area to leg or breast - Follow up plan Follow up: ESTEFANIA WHITLEY MD [Primary Care Provider] - 3 Days
[2020-10-19 17:54] VITALS: BP 120/74
== END 2020-10-19 17:50 | disposition home or self-care (01) | DRG 774 ==
LOC: TRG 20:39 → LD 20:43 → TRG 23:05 → LD 23:05 → OB 10-17 22:09
PROC: 10907ZC Drainage of Amniotic Fluid, Therapeutic from Products of Conception, Via Natural or Artificial Opening (ICD-10-PCS; 2020-10-16)
PROC: 3E0P7VZ Introduction of Hormone into Female Reproductive, Via Natural or Artificial Opening (ICD-10-PCS; principal; 2020-10-17)
PROC: 10E0XZZ Delivery of Products of Conception, External Approach (ICD-10-PCS; 2020-10-17)
PROC: 10H07YZ Insertion of Other Device into Products of Conception, Via Natural or Artificial Opening (ICD-10-PCS; 2020-10-17)
PROC: 3E033VJ Introduction of Other Hormone into Peripheral Vein, Percutaneous Approach (ICD-10-PCS; 2020-10-17)
PROC: 3E0R3BZ Introduction of Anesthetic Agent into Spinal Canal, Percutaneous Approach (ICD-10-PCS; 2020-10-17)
PROC: 00HU33Z Insertion of Infusion Device into Spinal Canal, Percutaneous Approach (ICD-10-PCS; 2020-10-17)
DX: O10.92 Unspecified pre-existing hypertension complicating childbirth (principal); O90.81 Anemia of the puerperium; O98.12 Syphilis complicating childbirth; Z20.822 Contact with and (suspected) exposure to COVID-19; Z3A.38 38 weeks gestation of pregnancy; Z80.9 Family history of malignant neoplasm, unspecified; Z83.3 Family history of diabetes mellitus; Z37.0 Single live birth; Z82.49 Family history of ischemic heart disease and other diseases of the circulatory system; Z79.899 Other long term (current) drug therapy
CPT/HCPCS: 36415; 59025; 59200; 82565; 83615; 84450; 84460; 84550; 85014; 85018; 85027; 86592; 86850; 86900; 86901; G0378; A6250; J0290; J0595; J2590; J3105; J7120; U0003